=== PATIENT | male | born 1965 | race Caucasian/White ===

== ENCOUNTER 2018-07-08 00:43 | Inpatient (IN) | payer OTHER ==
[~2018-07-08] VITALS: Ht 172.7 cm; Wt 156.5 kg
[2018-07-08] MEDS ORDERED: FOLIC ACID1 MG (01:00)
[2018-07-08] MEDS ORDERED: FORTAMET500 MG (01:00)
[2018-07-08] MEDS ORDERED: SYNTHROID150 MCG (01:02)
[2018-07-08] MEDS ORDERED: MTX 4%-1% PATC1 EACH (01:03)
[2018-07-08] MEDS ORDERED: [UNRECOGNIZED DRUG - CODE] (01:05)
[2018-07-08] MEDS ORDERED: PLAQUENIL (01:06)
== END 2018-07-15 14:05 | disposition home or self-care (01) | DRG 438 ==
LOC: ER 00:43 → MEDI 09:12 → SEC-K 09:12 → MEDJ 10:52 → MEDI 10:55
PROC: BW40ZZZ Ultrasonography of Abdomen (ICD-10-PCS; 2018-07-08)
PROC: 3E0F7GC Introduction of Other Therapeutic Substance into Respiratory Tract, Via Natural or Artificial Opening (ICD-10-PCS; principal; 2018-07-11)
PROC: 4A033R1 Measurement of Arterial Saturation, Peripheral, Percutaneous Approach (ICD-10-PCS; 2018-07-13)
DX: K85.80 Other acute pancreatitis without necrosis or infection (principal); J18.9 Pneumonia, unspecified organism; E80.4 Gilbert syndrome; E86.0 Dehydration; E11.9 Type 2 diabetes mellitus without complications; E03.8 Other specified hypothyroidism; M06.89 Other specified rheumatoid arthritis, multiple sites; K80.80 Other cholelithiasis without obstruction; E66.01 Morbid (severe) obesity due to excess calories

== ENCOUNTER 2018-09-22 12:41 | Inpatient (IN) | payer OTHER ==
[~2018-09-22] VITALS: Ht 167.6 cm; Wt 140.2 kg
[~2018-09-22 12:41] MED LIST: FOLIC ACID1 MG; FORTAMET500 MG; MTX 4%-1% PATC1 EACH; PLAQUENIL; SINGULAIR10 MG PO; SYNTHROID150 MCG; VIT D PO; [UNRECOGNIZED DRUG - CODE]
[2018-09-26] MEDS ORDERED: OXYC1TAB9 PO (14:21)
== END 2018-09-26 14:42 | disposition home or self-care (01) | DRG 417 ==
LOC: ER 12:41 → SEC-K 18:48 → SURG 18:48 → MEDJ 19:35 → SURG 09-23 11:58
PROVIDERS: Surgery
PROC: BF11YZZ Fluoroscopy of Biliary and Pancreatic Ducts using Other Contrast (ICD-10-PCS; 2018-09-24)
PROC: BW40ZZZ Ultrasonography of Abdomen (ICD-10-PCS; 2018-09-24)
PROC: 02HV33Z Insertion of Infusion Device into Superior Vena Cava, Percutaneous Approach (ICD-10-PCS; 2018-09-24)
PROC: 0FT44ZZ Resection of Gallbladder, Percutaneous Endoscopic Approach (ICD-10-PCS; principal; 2018-09-24 21:00)
DX: K80.10 Calculus of gallbladder with chronic cholecystitis without obstruction (principal); K85.10 Biliary acute pancreatitis without necrosis or infection; E80.4 Gilbert syndrome; E03.8 Other specified hypothyroidism; E11.9 Type 2 diabetes mellitus without complications; E66.01 Morbid (severe) obesity due to excess calories; G47.30 Sleep apnea, unspecified; M06.89 Other specified rheumatoid arthritis, multiple sites

== ENCOUNTER 2020-01-04 11:50 | Outpatient (CLI) | payer OTHER ==
[~2020-01-04] VITALS: Ht 203.2 cm; Wt 154.2 kg
[~2020-01-04 11:50] MED LIST changes: +OXYC1TAB9 PO
== END 2020-01-04 15:23 | disposition home or self-care (01) ==
LOC: OFIC 805 11:50
DX: J30.89 Other allergic rhinitis (principal); K21.0 Gastro-esophageal reflux disease with esophagitis